=== PATIENT | female | born 1990 | race American Indian/Alaskan Native ===

== ENCOUNTER 2018-12-13 09:40 | Emergency (ER) | payer OTHER ==
--- NOTE | 2018-12-13 10:21 | Emergency Department Report ---
ED Lower Extremity HPI - General Chief Complaint: Extremity Injury, Lower Stated Complaint: RT ANKLE PAIN/DISCOMFORT Time Seen by Provider: 12/13/18 10:12 Source: patient Mode of arrival: Ambulatory Limitations: No Limitations - History of Present Illness Initial Comments: 28-year-old morbidly obese abdomen female discharged department complaining of chronic right foot pain which occurs after a long day of work, which she stands a lot. She is employed at [employer] works walks a lot on concrete moving [employer]. She denies any known trauma. No fever, chills, sweats, rash, cellulitis. -: Gradual Injury: Ankle: Right, Foot: Right Place: work Severity: mild Improves With: rest Worsens With: weight bearing Associated Symptoms: ambulatory - Related Data Previous Rx's Medication Instructions Recorded Last Taken Type Ibuprofen [Motrin] 600 mg PO Q8H PRN #20 tablet 08/13/18 Unknown Rx Ketorolac [Toradol] 10 mg PO Q6H PRN #15 tablet 12/13/18 Unknown Rx traMADol [Ultram] 50 mg PO Q6HR PRN #10 tablet 12/13/18 Unknown Rx Allergies Allergy/AdvReac Type Severity Reaction Status Date / Time No Known Allergies Allergy Unverified 08/13/18 13:23 ED Review of Systems ROS: Stated complaint: RT ANKLE PAIN/DISCOMFORT Other details as noted in HPI Constitutional: denies: chills, fever Eyes: denies: eye pain, eye discharge, vision change ENT: denies: ear pain, throat pain Respiratory: denies: cough, shortness of breath, wheezing Cardiovascular: denies: chest pain, palpitations Endocrine: no symptoms reported Gastrointestinal: denies: abdominal pain, nausea, diarrhea Genitourinary: denies: urgency, dysuria, discharge Musculoskeletal: joint swelling, arthralgia. denies: back pain Skin: denies: rash, lesions Neurological: denies: headache, weakness, paresthesias Psychiatric: denies: anxiety, depression Hematological/Lymphatic: denies: easy bleeding, easy bruising ED Past Medical Hx - Past Medical History Previous Medical History?: No - Surgical History Past Surgical History?: No - Social History Smoking Status: Current Every Day Smoker Substance Use Type: None - Medications Home Medications: Home Medications Medication Instructions Recorded Confirmed Last Taken Type Ibuprofen [Motrin] 600 mg PO Q8H PRN #20 tablet 08/13/18 Unknown Rx Ketorolac [Toradol] 10 mg PO Q6H PRN #15 tablet 12/13/18 Unknown Rx traMADol [Ultram] 50 mg PO Q6HR PRN #10 tablet 12/13/18 Unknown Rx ED Physical Exam - General Limitations: No Limitations General appearance: alert, in no apparent distress - Head Head exam: Present: atraumatic, normocephalic - Eye Eye exam: Present: normal appearance, PERRL, EOMI. Absent: scleral icterus, conjunctival injection Pupils: Present: normal accommodation - ENT ENT exam: Present: normal exam, normal orophraynx, mucous membranes moist, TM's normal bilaterally - Neck Neck exam: Present: normal inspection - Respiratory Respiratory exam: Present: normal lung sounds bilaterally. Absent: respiratory distress, rales, rhonchi, chest wall tenderness, accessory muscle use, decreased breath sounds - Cardiovascular Cardiovascular Exam: Present: regular rate, normal rhythm. Absent: systolic murmur, diastolic murmur, rubs, gallop - GI/Abdominal GI/Abdominal exam: Present: soft, normal bowel sounds - Extremities Exam Extremities exam: Present: normal inspection, tenderness, normal capillary refill, joint swelling - Expanded Lower Extremity Exam Right Foot/Toe exam: Present: tenderness, deformity (pes planus noted and hallux valgus) Neuro vascular tendon exam: Present: no vascular compromise. Absent: abnormal cap refill, motor deficit, sensory deficit, extremity cold to touch - Back Exam Back exam: Present: normal inspection - Neurological Exam Neurological exam: Present: alert, oriented X3 - Psychiatric Psychiatric exam: Present: normal affect, normal mood - Skin Skin exam: Present: warm, dry, intact, normal color. Absent: rash ED Course Vital Signs 12/13/18 09:44 Temperature 98.3 F Pulse Rate 86 Respiratory 18 Rate Blood Pressure 130/76 O2 Sat by Pulse 97 Oximetry Critical care attestation.: If time is entered above; I have spent that time in minutes in the direct care of this critically ill patient, excluding procedure time. ED Disposition Clinical Impression: Hallux valgus of right foot, Pes planus of right foot Disposition: DC- TO HOME OR SELFCARE Is pt being admited?: No Does the pt Need Aspirin: No Condition: Stable Instructions: Arthralgia (ED) Referrals: ALESSIA SANCHEZ MD [Primary Care Provider] - 3-5 Days
[2018-12-13] MEDS ORDERED: PERCOCET 5/325 PO STA (10:26)
[2018-12-13 10:50] VITALS: BP 132/60
== END 2018-12-13 10:48 | disposition home or self-care (01) ==
LOC: ED 09:40
DX: M20.11 Hallux valgus (acquired), right foot (principal); M21.41 Flat foot [pes planus] (acquired), right foot; F17.200 Nicotine dependence, unspecified, uncomplicated

== ENCOUNTER 2018-12-23 18:27 | Emergency (ER) | payer OTHER ==
--- NOTE | 2018-12-23 18:50 | Emergency Department Report ---
Chief Complaint: Extremity Injury, Lower Stated Complaint: (R) ANKLE PAIN Time Seen by Provider: 12/23/18 18:49 - HPI History of Present Illness: AMBULATORY R ANKLE PAIN "LOCKED OUT TODAY" MSE COMPLETED - Exam Vital Signs: Vital Signs 12/23/18 18:36 Temperature 98.2 F Pulse Rate 63 Respiratory 18 Rate Blood Pressure 125/67 O2 Sat by Pulse 98 Oximetry MSE screening note: Focused history and physical exam performed. Due to findings the following was ordered: ED Disposition for MSE Condition: Stable
--- NOTE | 2018-12-23 20:42 | XRay Report ---
PROCEDURE: XR ANKLE 3+V RT TECHNIQUE: AP oblique and lateral view of the right ankle were obtained. HISTORY: PAIN R ANKLE COMPARISONS: None FINDINGS: No evidence of fracture or dislocation. Bone density and joint spaces appear normal. Ankle mortise an d talar dome appear intact. No calcaneal spurs are visualized. IMPRESSION: Negative exam.. This document is electronically signed by Shivam Gutierrez MD., December 23 2018 08:40:28 PM ET
--- NOTE | 2018-12-23 21:00 | Emergency Department Report ---
ED Lower Extremity HPI - General Chief Complaint: Extremity Injury, Lower Stated Complaint: (R) ANKLE PAIN Time Seen by Provider: 12/23/18 18:49 Source: patient Mode of arrival: Ambulatory Limitations: No Limitations - History of Present Illness Initial Comments: 28-year-old female to emergency Department complaining of reactivating a previous injury to her ankle. 4. She was seen here about one week ago while at work. She was attempting to step onto a ladder and she missed the ladder causing herself to fall backwards, landing onto some boxes which she said was of relatively soft landing on while at work. She was initially evaluated at [facility] urgent care the day of the injury, but stated that she really didn't have much pain at that time, but at the 24 hours head results and to have more aches and pains and throbbing to her right ankle was negative. Her to her visit to the emergency department tonight. ROSARIO Complaint: ankle injury -: days(s) (2) Injury: Ankle: Right Place: work Severity: mild - Related Data Previous Rx's Medication Instructions Recorded Last Taken Type Ibuprofen [Motrin] 600 mg PO Q8H PRN #20 tablet 08/13/18 Unknown Rx Ketorolac [Toradol] 10 mg PO Q6H PRN #15 tablet 12/13/18 Unknown Rx traMADol [Ultram] 50 mg PO Q6HR PRN #10 tablet 12/13/18 Unknown Rx Ketorolac [Toradol] 10 mg PO Q6H PRN #14 tablet 12/23/18 Unknown Rx Allergies Allergy/AdvReac Type Severity Reaction Status Date / Time No Known Allergies Allergy Verified 12/23/18 18:36 ED Review of Systems ROS: Stated complaint: (R) ANKLE PAIN Other details as noted in HPI Constitutional: denies: chills, fever Eyes: denies: eye pain, eye discharge, vision change ENT: denies: ear pain, throat pain Respiratory: denies: cough, shortness of breath, wheezing Cardiovascular: denies: chest pain, palpitations Endocrine: no symptoms reported Gastrointestinal: denies: abdominal pain, nausea, diarrhea Genitourinary: denies: urgency, dysuria, discharge Musculoskeletal: denies: back pain, joint swelling, arthralgia Skin: denies: rash, lesions Neurological: denies: headache, weakness, paresthesias Psychiatric: denies: anxiety, depression Hematological/Lymphatic: denies: easy bleeding, easy bruising ED Past Medical Hx - Past Medical History Previous Medical History?: No - Surgical History Past Surgical History?: No - Social History Smoking Status: Current Some Day Smoker Substance Use Type: Alcohol - Medications Home Medications: Home Medications Medication Instructions Recorded Confirmed Last Taken Type Ibuprofen [Motrin] 600 mg PO Q8H PRN #20 tablet 08/13/18 Unknown Rx Ketorolac [Toradol] 10 mg PO Q6H PRN #15 tablet 12/13/18 Unknown Rx traMADol [Ultram] 50 mg PO Q6HR PRN #10 tablet 12/13/18 Unknown Rx Ketorolac [Toradol] 10 mg PO Q6H PRN #14 tablet 12/23/18 Unknown Rx ED Physical Exam - General Limitations: No Limitations General appearance: alert, in no apparent distress - Head Head exam: Present: atraumatic, normocephalic - Eye Eye exam: Present: normal appearance - ENT ENT exam: Present: mucous membranes moist - Neck Neck exam: Present: normal inspection - Respiratory Respiratory exam: Present: normal lung sounds bilaterally. Absent: respiratory distress - Cardiovascular Cardiovascular Exam: Present: regular rate, normal rhythm. Absent: systolic murmur, diastolic murmur, rubs, gallop - GI/Abdominal GI/Abdominal exam: Present: soft, normal bowel sounds - Extremities Exam Extremities exam: Present: normal inspection, joint swelling (lateral malleolus. Pain with palpation. Drawer test is negative. Pain is planus is noted.) - Back Exam Back exam: Present: normal inspection - Neurological Exam Neurological exam: Present: alert, oriented X3 - Psychiatric Psychiatric exam: Present: normal affect, normal mood - Skin Skin exam: Present: warm, dry, intact, normal color. Absent: rash ED Course Vital Signs 12/23/18 18:36 Temperature 98.2 F Pulse Rate 63 Respiratory 18 Rate Blood Pressure 125/67 O2 Sat by Pulse 98 Oximetry - Procedure Description Procedures done: Patient was given crutches and a filtral Velcro stirrup brace for comfort Critical care attestation.: If time is entered above; I have spent that time in minutes in the direct care of this critically ill patient, excluding procedure time. ED Disposition Clinical Impression: Right ankle sprain Disposition: DC- TO HOME OR SELFCARE Is pt being admited?: No Does the pt Need Aspirin: No Condition: Stable Instructions: Ankle Stirrup Splint (ED), Ankle Sprain (ED), Ankle Exercises (GEN), RICE Therapy (ED) Prescriptions: Ketorolac [Toradol] 10 mg PO Q6H PRN #14 tablet PRN Reason: Pain [facility] DEE[facility] [Primary Care Provider] - 3-5 Days
[2018-12-23] MEDS ORDERED: NORCO 5/325 PO STA (21:06)
[2018-12-23 21:30] VITALS: BP 125/67
== END 2018-12-23 21:29 | disposition home or self-care (01) ==
LOC: ED 18:27
DX: M25.571 Pain in right ankle and joints of right foot (principal); F17.200 Nicotine dependence, unspecified, uncomplicated

== ENCOUNTER 2019-01-28 17:55 | Emergency (ER) | payer OTHER ==
--- NOTE | 2019-01-28 18:01 | Emergency Department Report ---
Blank Doc - Documentation Documentation: This is a 28-year-old female that presents with URI symptoms. This initial assessment/diagnostic orders/clinical plan/treatment(s) is/are subject to change based on patient's health status, clinical progression and re- assessment by fellow clinical providers in the ED. Further treatment and workup at subsequent clinical providers discretion. Patient/guardians urged not to elope from the ED as their condition may be serious if not clinically assessed and managed. Initial orders include: 1- Patient sent to [facility] for further evaluation and treatment 2- CXR
[2019-01-28 18:04] VITALS: BP 127/62
--- NOTE | 2019-01-28 19:26 | XRay Report ---
PROCEDURE: XR CHEST ROUTINE 2V TECHNIQUE: PA and lateral chest radiographs were obtained. HISTORY: cough COMPARISONS: None. FINDINGS: There is no evidence of focal infiltrate, pneumothorax or pleural fluid collection. The cardiomediastinal silhouette is normal in appearance. The bony structures are unremarkable. IMPRESSION: 1. No evidence of an acute pulmonary process. This document is electronically signed by Zofia Ruiz MD., Jan 28 2019 07:24:01 PM ET
--- NOTE | 2019-01-28 20:14 | Emergency Department Report ---
- General Chief Complaint: Upper Respiratory Infection Stated Complaint: COUGH, CONGESTION Time Seen by Provider: 01/28/19 18:00 Source: patient Mode of arrival: Ambulatory Limitations: No Limitations - History of Present Illness Initial Comments: Pt is a 28 yo female who presents to the ED with c/o URI sx that began a couple of days ago. She has associated cough, congestion, itchy throat, and mild SOB. She denies any fever or ear ache. She states she does have seasonal allergies but has not been taking anything this season. She states she took OTC cough medication and nasal spray without much relief. She is a smoker, occ drinker, denies drug use. no PMHx, no allergies to medications. - Related Data Previous Rx's Medication Instructions Recorded Last Taken Type Ibuprofen [Motrin] 600 mg PO Q8H PRN #20 tablet 08/13/18 Unknown Rx Ketorolac [Toradol] 10 mg PO Q6H PRN #15 tablet 12/13/18 Unknown Rx traMADol [Ultram] 50 mg PO Q6HR PRN #10 tablet 12/13/18 Unknown Rx Ketorolac [Toradol] 10 mg PO Q6H PRN #14 tablet 12/23/18 Unknown Rx Benzonatate [Tessalon Perles] 100 mg PO Q8HR PRN #14 capsule 01/28/19 Unknown Rx Fluticasone [Flonase] 1 spray NS QDAY #1 bottle 01/28/19 Unknown Rx Loratadine [Claritin] 10 mg PO DAILY #30 tablet 01/28/19 Unknown Rx Prednisone [predniSONE 5 mg (6-Day 5 mg PO .TAPER #1 tab.ds.pk 01/28/19 Unknown Rx Pack, 21 Tabs)] Allergies Allergy/AdvReac Type Severity Reaction Status Date / Time No Known Allergies Allergy Verified 01/28/19 17:56 ED Review of Systems ROS: Stated complaint: COUGH, CONGESTION Other details as noted in HPI Comment: All other systems reviewed and negative ED Past Medical Hx - Past Medical History Previous Medical History?: No - Surgical History Past Surgical History?: No - Social History Smoking Status: Current Every Day Smoker Substance Use Type: Alcohol - Medications Home Medications: Home Medications Medication Instructions Recorded Confirmed Last Taken Type Ibuprofen [Motrin] 600 mg PO Q8H PRN #20 tablet 08/13/18 Unknown Rx Ketorolac [Toradol] 10 mg PO Q6H PRN #15 tablet 12/13/18 Unknown Rx traMADol [Ultram] 50 mg PO Q6HR PRN #10 tablet 12/13/18 Unknown Rx Ketorolac [Toradol] 10 mg PO Q6H PRN #14 tablet 12/23/18 Unknown Rx Benzonatate [Tessalon Perles] 100 mg PO Q8HR PRN #14 capsule 01/28/19 Unknown Rx Fluticasone [Flonase] 1 spray NS QDAY #1 bottle 01/28/19 Unknown Rx Loratadine [Claritin] 10 mg PO DAILY #30 tablet 01/28/19 Unknown Rx Prednisone [predniSONE 5 mg (6-Day 5 mg PO .TAPER #1 tab.ds.pk 01/28/19 Unknown Rx Pack, 21 Tabs)] ED Physical Exam - General Limitations: No Limitations General appearance: alert, in no apparent distress - Head Head exam: Present: atraumatic, normocephalic - Eye Eye exam: Present: normal appearance, PERRL - ENT ENT exam: Present: normal orophraynx, mucous membranes moist, other (pale boggy turbinates bilaterally ) - Respiratory Respiratory exam: Present: normal lung sounds bilaterally. Absent: respiratory distress, wheezes, rales, rhonchi, stridor, chest wall tenderness, accessory muscle use, decreased breath sounds, prolonged expiratory - Cardiovascular Cardiovascular Exam: Present: regular rate, normal rhythm, normal heart sounds. Absent: systolic murmur, diastolic murmur, rubs, gallop - Neurological Exam Neurological exam: Present: alert, oriented X3 - Psychiatric Psychiatric exam: Present: normal affect, normal mood - Skin Skin exam: Present: warm, dry, intact ED Course Vital Signs 01/28/19 18:02 Temperature 98.5 F Pulse Rate 82 Respiratory 18 Rate Blood Pressure 127/62 O2 Sat by Pulse 98 Oximetry ED Medical Decision Making - Medical Decision Making vitals are normal. examination and history consistent with seasonal allergies, allergic rhinitis, and URI. pt given allergy medication, flonase, steroids, and tessalon perles. discussed to follow up with PCP in the next 2-3 days. take medication as prescribed. drink plenty of water. return to the emergency room for any new or worsening symptoms. Critical care attestation.: If time is entered above; I have spent that time in minutes in the direct care of this critically ill patient, excluding procedure time. ED Disposition Clinical Impression: Seasonal allergies Allergic rhinitis Qualifiers: Allergic rhinitis trigger: unspecified Allergic rhinitis seasonality: seasonal Qualified Code(s): J30.2 - Other seasonal allergic rhinitis URI (upper respiratory infection) Qualifiers: URI type: unspecified URI Qualified Code(s): J06.9 - Acute upper respiratory infection, unspecified Disposition: - TO HOME OR SELFCARE Is pt being admited?: No Does the pt Need Aspirin: No Condition: Stable Instructions: Allergic Rhinitis (ED), Upper Respiratory Infection (ED) Additional Instructions: Follow up with primary care doctor in the next 2-3 days. take medication as prescribed. drink plenty of water. return to the emergency room for any new or worsening symptoms. Prescriptions: Loratadine [Claritin] 10 mg PO DAILY #30 tablet Fluticasone [Flonase] 1 spray NS QDAY #1 bottle Prednisone [predniSONE 5 mg (6-Day Pack, 21 Tabs)] 5 mg PO .TAPER #1 tab.ds.pk Benzonatate [Tessalon Perles] 100 mg PO Q8HR PRN #14 capsule PRN Reason: Cough Referrals: RICARDO MITCHELL MD [Primary Care Provider] - 2-3 Days [facility] [Provider Group] - 2-3 Days Forms: Work/School Release Form(ED) Time of Disposition: 20:13 Print Language: SERBIAN
== END 2019-01-28 20:22 | disposition home or self-care (01) ==
LOC: ED 17:55
DX: J30.2 Other seasonal allergic rhinitis (principal); J06.9 Acute upper respiratory infection, unspecified; J30.9 Allergic rhinitis, unspecified; F17.200 Nicotine dependence, unspecified, uncomplicated
CPT/HCPCS: 71046

== ENCOUNTER 2019-09-03 18:31 | Emergency (ER) | payer OTHER ==
[2019-09-03 19:39] VITALS: BP 155/87
--- NOTE | 2019-09-04 00:59 | Emergency Department Report ---
Chief Complaint: Back Pain/Injury Stated Complaint: LOWER BACK PAIN Time Seen by Provider: 09/04/19 00:54 - HPI History of Present Illness: 29-year-old -[place] female presents to the emergency room for back pain since Saturday. Patient reports that she has had no trauma. She does admit to pushing bending twisting. Patient last took pain medication on . He denies any past medical history denies any dysuria denies any urinary or bowel incontinence. - Exam Vital Signs: Vital Signs 09/03/19 19:12 Temperature 98.6 F Pulse Rate 69 Respiratory 20 Rate Blood Pressure 155/87 O2 Sat by Pulse 100 Oximetry Physical Exam: Gen: alert oriented NAD Cardic: regular rate and rhythm no murmurs appreciated Resp: Clear to auscultation bilateral no wheezing no rales or rhonchi. Abdomen: Soft nontender nondistended normal bowel sounds. Back: Full range of motion no vertebral tenderness no CVA tenderness no rash appreciated. MSE screening note: Focused history and physical exam performed. Due to findings the following was ordered: ED Disposition for MSE Clinical Impression: Low back strain Disposition: Z-07 MED SCREENING EXAM-LEFT Is pt being admited?: No Does the pt Need Aspirin: No Condition: Stable Referrals: PRIMARY CAREMD [Primary Care Provider] - 3-5 Days RICARDO MITCHELL MD [Staff Physician] - 3-5 Days Forms: Work/School Release Form(ED)
== END 2019-09-04 01:16 | disposition left against medical advice (07) ==
LOC: ED 18:31
DX: S39.012A Strain of muscle, fascia and tendon of lower back, initial encounter (principal); X50.1XXA Overexertion from prolonged static or awkward postures, initial encounter; Y93.89 Activity, other specified; Y92.89 Other specified places as the place of occurrence of the external cause; Y99.8 Other external cause status
CPT/HCPCS: 99281